=== PATIENT | female | born 1975 | race African-American/Black ===

== ENCOUNTER 2023-10-30 17:31 | Emergency (ER) | payer BC ==
[2023-10-30] MEDS ORDERED: Morphine 4 MG/ML VIAL ONE (18:03)
[2023-10-30] MEDS ORDERED: Ondansetron ODT 4 MG TAB ONE (18:21)
== END 2023-10-30 18:46 | disposition home or self-care (01) ==
LOC: CSHERS 17:31
DX: S52.592A Other fractures of lower end of left radius, initial encounter for closed fracture (principal); W17.89XA Other fall from one level to another, initial encounter
CPT/HCPCS: 29125; 96372; J2270; Q0162